=== PATIENT | male | born 1995 | race Caucasian/White ===

== ENCOUNTER 2021-11-28 17:40 | Emergency (ER) | payer OTHER ==
[~2021-11-28] VITALS: Ht 188 cm; Wt 86.4 kg
[2021-11-28] MEDS ORDERED: TRAZ-252 PO (17:50)
[2021-11-28] MEDS ORDERED: GABA-283 PO (17:50)
[2021-11-28] MEDS ORDERED: ACETAMINOPHEN 325 MG TAB PO ONE (22:30)
[2021-11-28] MEDS ORDERED: ONDANSETRON 4 MG ORAL DISINTEGRATING TAB PO ONE (22:30)
[2021-11-28 23:09] LABS: RSV AMPLIFICATION NEGATIVE (NEGATIVE)
[2021-11-28] MEDS ORDERED: CYCLOBENZAPRINE 5MG TABLET PO ONE (23:35)
[2021-11-28 23:40] VITALS: BP 114/67
[2021-11-28] MEDS ORDERED: ONDA4TAB6 PO (23:57)
[2021-11-28] MEDS ORDERED: CYCL5TAB PO (23:57)
== END 2021-11-29 00:28 | disposition home or self-care (01) ==
LOC: EDBD 17:40 → M ED 17:40
DX: U07.1 COVID-19 (principal); R11.0 Nausea; S00.93XA Contusion of unspecified part of head, initial encounter; R51.9 Headache, unspecified; W22.09XA Striking against other stationary object, initial encounter; Y92.009 Unspecified place in unspecified non-institutional (private) residence as the place of occurrence of the external cause; Y93.9 Activity, unspecified; Y99.9 Unspecified external cause status
CPT/HCPCS: 70450; 87631; 99282; Q0162

== ENCOUNTER → 2022-01-10 | Outpatient (CLI) | payer OTHER ==
[~2022-01-10] MED LIST: CYCL5TAB PO; GABA-283 PO; ONDA4TAB6 PO; TRAZ-252 PO
== END ==
LOC: M PAIN 08:30
PROVIDERS: ATTEND Nurse Practitioner Family
DX: M79.10 Myalgia, unspecified site (principal); Z86.59 Personal history of other mental and behavioral disorders; Z79.899 Other long term (current) drug therapy

== ENCOUNTER 2022-04-15 10:19 | Emergency (ER) | payer OTHER ==
[~2022-04-15] VITALS: Ht 188 cm; Wt 102.8 kg
[2022-04-15] MEDS ORDERED: ONDANSETRON 4MG ORAL DISINTEGRATING TAB PO ONE (12:25)
[2022-04-15] MEDS ORDERED: LIDOCAINE 5% (LIDODERM) PATCH TD ONE (12:25)
[2022-04-15] MEDS ORDERED: NORCO, ANEXSIA 5/325MG TABLET (HYDROcodone/ACETAMINOPHEN) PO ONE (12:25)
[2022-04-15] MEDS ORDERED: HYDR-4571 PO (12:33)
[2022-04-15] MEDS ORDERED: LIDO5DIS41 TOP (12:33)
[2022-04-15 12:48] VITALS: BP 134/85
[2022-04-15] MEDS ORDERED: **NOTE PATIENT COMMENT** MISC XX SCH (21:00)
== END 2022-04-15 12:49 | disposition home or self-care (01) ==
LOC: M ED 10:19
DX: S46.812A Strain of other muscles, fascia and tendons at shoulder and upper arm level, left arm, initial encounter (principal); M75.01 Adhesive capsulitis of right shoulder; Y92.9 Unspecified place or not applicable; Y93.9 Activity, unspecified; Y99.9 Unspecified external cause status

== ENCOUNTER → 2023-02-26 | Outpatient (CLI) | payer OTHER ==
[~2023-02-26] MED LIST changes: +HYDR-4571 PO; +LIDO5DIS41 TOP
== END ==
LOC: M PLAIMG 10:46
DX: M25.512 Pain in left shoulder (principal)

== ENCOUNTER → 2023-04-18 | Outpatient (CLI) | payer OTHER | LOC: M PAIN 08:00 | PROVIDERS: ATTEND Nurse Practitioner Family | DX: M54.2 Cervicalgia (principal); M25.511 Pain in right shoulder; G89.29 Other chronic pain; F33.1 Major depressive disorder, recurrent, moderate; M75.101 Unspecified rotator cuff tear or rupture of right shoulder, not specified as traumatic; M54.50 Low back pain, unspecified; Z60.0 Problems of adjustment to life-cycle transitions; M66.821 Spontaneous rupture of other tendons, right upper arm; M51.37 Other intervertebral disc degeneration, lumbosacral region; Z79.899 Other long term (current) drug therapy; Z91.010 Allergy to peanuts; Z88.5 Allergy status to narcotic agent ==

== ENCOUNTER → 2023-06-13 | Outpatient (CLI) | payer OTHER ==
[~2023-06-13] MED LIST changes: -GABA-283 PO; +GABA-284 PO
== END ==
LOC: M PLAIMG 07:43
PROVIDERS: ATTEND Nurse Practitioner Family
DX: M54.2 Cervicalgia (principal)

== ENCOUNTER → 2023-07-04 | Outpatient (CLI) | payer OTHER | LOC: M PLAIMG 09:17 | PROVIDERS: ATTEND Nurse Practitioner Family | DX: M25.511 Pain in right shoulder (principal); Z96.611 Presence of right artificial shoulder joint ==

== ENCOUNTER → 2023-07-11 | Outpatient (CLI) | payer OTHER | LOC: M PAIN 09:00 | PROVIDERS: ATTEND Nurse Practitioner Family | DX: M54.2 Cervicalgia (principal); M25.511 Pain in right shoulder; G89.29 Other chronic pain; Z80.42 Family history of malignant neoplasm of prostate; Z80.8 Family history of malignant neoplasm of other organs or systems; Z88.5 Allergy status to narcotic agent; Z91.012 Allergy to eggs ==